=== PATIENT | male | born 1965 | race Two or more races ===

== ENCOUNTER 2022-08-29 10:44 | Inpatient (IN) | payer MEDICAID ==
[~2022-08-29] VITALS: Ht 167.6 cm; Wt 68.9 kg
--- NOTE | 2022-08-29 21:40 | NUR ---
SHAFT REPAIRER NOTES: RECEIVED PATIENT VIA GURNEY DIRECT ADMIT FROM [facility], ON STABLE CONDITION, PLACE COMFORTABLY IN BED, BED IN LOW POSITION CALL LIGHTS WITHIN REACH, NO COMPLAIN OF PAIN AND DISCOMFORT AT THIS TIME ON ROOM AIR SATURATING WELL, PATIENT IS A/OX4 AMBULATORY ABLE TO MAKE NEEDS KNOWN SKIN ASSESSMENT DONE, NO SKIN ISSUES WAS OBSERVED, INVENTORIES DONE, ORIENTED TO PLACE, PATIENT KEPT CLEAN AND DRY ALL NEEDS MET WILL CONTINUE TO MONITOR. Addendum: 08/30/22 at 0159 by OTIS CARO RN ADDITIONAL: PATIENT HAD 1126 DOLLAR ON HIS WALLET, PATIENT REFUSED TO TURNOVER IT FOR SAFEKEEPING , PATIENT SIGNED, ACKNOWLEDGING THAT MONEY WAS ON HIS CARE.
[2022-08-29] MEDS ORDERED: MAG HYDROX/AL HYDROX/SIMETH 30 ML UDC PO PRN (22:30)
[2022-08-29] MEDS ORDERED: MAGNESIUM HYDROXIDE 30 ML UDC PO PRN (22:30)
[2022-08-29] MEDS ORDERED: ACETAMINOPHEN 325 MG TABLET PO PRN (22:30)
[2022-08-29] MEDS ORDERED: HYDROCODONE/APAP 5/325MG TABLET PO PRN (22:30)
[2022-08-29] MEDS ORDERED: ONDANSETRON HCL/PF 4 MG/2 ML VIAL IVP PRN (22:30)
[2022-08-29] MEDS ORDERED: ZOLPIDEM TARTRATE 5 MG TABLET PO PRN (22:30)
[2022-08-30] MEDS ORDERED: MORPHINE SULFATE INJ 4 MG/ML DISP.SYRIN IV PRN (00:30)
[2022-08-30] MEDS ORDERED: METOPROLOL SUCCINATE 50 MG TAB.SR.24H PO SCH (00:30)
[2022-08-30 04:00] VITALS: BP 123/86
[2022-08-30 06:11] LABS: BASOPHILS % (AUTO) 0.1 % (0.0-2.0); EOSINOPHILS % (AUTO) 0.1 % (0.0-6.0); HEMATOCRIT 50 % (39-51); HEMOGLOBIN 16.1 g/dL (13.5-17.5); LYMPHOCYTES # (AUTO) 1.6 K/uL (0.8-4.8); LYMPHOCYTES % (AUTO) 10.2 % (20.0-44.0); MEAN CORPUSCULAR HGB CONC 32 g/dl (31.0-36.0); MEAN CORPUSCULAR VOLUME 89 fL (80-96); MONOCYTES # (AUTO) 1.5 K/uL (0.1-1.30); MONOCYTES % (AUTO) 9.5 % (2.0-12.0); NEUTROPHILS # (AUTO) 12.9 K/uL (1.8-8.9); NEUTROPHILS % (AUTO) 80.1 % (43.0-81.0); PLATELET COUNT (AUTO) 160 K/uL (150-450); RED BLOOD CELL COUNT(AUTO) 5.63 MIL/uL (4.5-6.0); WHITE BLOOD COUNT (AUTO) 16.1 K/uL (4.3-11.0)
[2022-08-30 06:27] LABS: CREATININE 1.4 mg/dL (0.6-1.3); MAGNESIUM 2.1 mg/dL (1.8-2.4); PHOSPHORUS 2.4 mg/dL (2.5-4.9); POTASSIUM 4.1 mmol/L (3.5-5.1)
--- NOTE | 2022-08-30 06:33 | NUR ---
FIELD CREW CHIEF CLOSING NOTES: PATIENT SLEEP IN BED COMFORTABLY, AROUSABLE TO VERBAL STIMULI, BED IN LOW POSITION, JACIEL LIGHTS WITHIN REACH, NO COMPLAIN OF PAIN AND DISCOMFORT AT THIS TIME ON ROOM AIR SATURATING WELL, PATIENT IS A/OX4 ABLE TO MAKE NEEDS KNOWN, AMBULATORY, ON TELE MONITOR- SR-88 WITH INVERTED T WAVES, NO SYMPTOMS WAS OBSERVED, PATIENT ON NPO FOR CARDIAC CATH TODAY, PATIENT KEPT CLEAN AND DRY ALL NEEDS MET ENDORSE TO INCOMING SHIFT.
[2022-08-30] MEDS ORDERED: PANTOPRAZOLE 40 MG TABLET.DR PO SCH (07:30)
[2022-08-30] MEDS ORDERED: IV SET PRIMARY PUMP SET 1 EA INFUS.SET MC ONE (07:53)
[2022-08-30] MEDS ORDERED: IV NS 0.9% 1,000 ML ONE (07:53)
--- NOTE | 2022-08-30 08:00 | NUR ---
FACTORY REPRESENTATIVE OPENING NOTES PATIENT AWAKE IN BED; AO X 4. SHE IS ON RA, TOLERATED WELL. NO S/S OF SOB OR DISTRESS. PATIENT IN LOW POSITION, CALL LIGHTS WITHIN REACH, NO COMPLAIN OF PAIN AND DISCOMFORT AT THIS TIME ON ROOM AIR SATURATING WELL, ON TELE MONITOR- SR-86 WITH INVERTED T WAVES, NO SYMPTOMS WAS OBSERVED, PATIENT ON NPO FOR CARDIAC CATH TODAY, PATIENT KEPT CLEAN AND DRY ALL NEEDS MET ENDORSE TO INCOMING SHIFT.
[2022-08-30] MEDS ORDERED: IODIXANOL 150 ML IV ONE (08:17)
[2022-08-30] MEDS ORDERED: FENTANYL PF 100MCG/2ML AMPUL ONE (08:17)
[2022-08-30] MEDS ORDERED: MIDAZOLAM HCL 2 MG/2ML VIAL ONE (08:18)
[2022-08-30] MEDS ORDERED: NITROGLYCERIN IN 5 % DEXTROSE 250 ML IV ONE (08:18)
[2022-08-30] MEDS ORDERED: LIDOCAINE HCL/MPF 1% 30 ML VIAL IJ ONE (08:18)
[2022-08-30] MEDS ORDERED: ASPIRIN 81 MG TAB.CHEW PO SCH (09:00)
[2022-08-30] MEDS ORDERED: FUROSEMIDE 40 MG/4 ML VIAL IV SCH (09:00)
--- NOTE | 2022-08-30 09:30 | NUR ---
RN NOTES PATIENT CAME BACK FROM THE [facility], VITALS A/OX4, NO C/O DISCOMFORT. VITALS TAKEN, STABLE AND RECORDED. BREAKFAST GIVEN. WILL MONITOR. ADVISED TO REMOVED AIR FROM TR BAND AT 1143. WILL MONITOR.
[2022-08-30] MEDS ORDERED: IODIXANOL 320MG/ML 100 ML IV ONE (09:33)
[2022-08-30] MEDS ORDERED: LOSARTAN POTASSIUM 25 MG TABLET PO SCH (10:30)
--- NOTE | 2022-08-30 11:12 | NUR ---
BACILIO NOTES PATIENT WENT FOR CARDIAC CATHETERIZATION, WILL FOLLOW UP Addendum: 08/30/22 at 1113 by RITA SPENCER RN PATIENT LEFT THE UNIT AT 0830 FOR THE PROCEDURE
[2022-08-30 11:51] VITALS: BP 112/82
[2022-08-30] MEDS ORDERED: METO50TA7 PO (12:58)
[2022-08-30] MEDS ORDERED: LOSA25TA27 PO (12:58)
[2022-08-30] MEDS ORDERED: FURO40TA5 PO (12:58)
--- NOTE | 2022-08-30 13:01 | NUR ---
RN NOTES ASPIRATED 3ML OF AIR EVERY 15MINS AT TR BAND STARTED AT 1143AM, NO SIGNS OF BLEEDING NOTED. TR BAND WAS REMOVED AFTER ASPIRATING 15ML OF AIR. INITIAL VITALS TAKEN, STABLE AND RECORDED. PATIENT A/OX4 NO COMPLICATIONS NOTED. WILL CONTINUE TO MONITOR.
[2022-08-30] MEDS ORDERED: NEUTRA PHOS 1 POWD.PACKET PO ONE (16:00)
--- NOTE | 2022-08-30 18:55 | NUR ---
MASTER STEAM YACHT CLOSING NOTES PATIENT AWAKE IN BED; AO X 4. ON RA, TOLERATED WELL. NO S/S OF SOB OR DISTRESS. PATIENT IN LOW POSITION, CALL LIGHTS WITHIN REACH, NO COMPLAIN OF PAIN AND DISCOMFORT AT THIS TIME ON ROOM AIR SATURATING WELL, ON TELE MONITOR-SR 86 CARDIAC CATH DONE TODAY, NO COMPLICATIONS NOTED. PATIENT FOR DISCHARGED TODAY, AWAITS LIFE VEST. ENDORSED TO NIGHT NURSE FOR DANIEL.
--- NOTE | 2022-08-30 19:43 | NUR ---
DISCHARGED NOTE DISCHARGED PATIENT TO HOME IN STABLE CONDITION. A/OX4. ON RA, TOLERATING WELL. NO SOB NOTED. VITALS TAKEN, STABLE AND RECORDED. PATIENT'S SKIN INTACT. DENIES PAIN OR DISCOMFORT. ALL BELONGINGS ACCOUNTED TO PATIENT. DISCHARGED INSTRUCTION RELAYED TO PATIENT, VERBALIZED UNDERSTANDING. IV ACCESS REMOVED WITH NO ACTIVE BLEEDING. PATIENT HAS BEEN GIVEN A LIFEVEST, EXPLAINED TO PATIENT USES AND ADVANTAGE. PATIENT LEFT WITH LIFEVEST. LEFT THE UNIT VIA WHEELCHAIR ACCOMPANIED BY STAFF AND . DISCHARGED.
[2022-08-31] MEDS ORDERED: FUROSEMIDE 40 MG TABLET PO SCH (09:00)
== END 2022-08-30 19:45 | disposition home or self-care (01) | DRG 190 ==
LOC: MED 21:11 → TELE 22:49
PROVIDERS: ADMIT Nurse Practitioner Acute Care
PROC: 4A023N7 Measurement of Cardiac Sampling and Pressure, Left Heart, Percutaneous Approach (ICD-10-PCS; principal; 2022-08-29)
PROC: B211YZZ Fluoroscopy of Multiple Coronary Arteries using Other Contrast (ICD-10-PCS; 2022-08-29)
PROC: B215YZZ Fluoroscopy of Left Heart using Other Contrast (ICD-10-PCS; 2022-08-29)
DX: I21.4 Non-ST elevation (NSTEMI) myocardial infarction (principal); J96.01 Acute respiratory failure with hypoxia; K72.00 Acute and subacute hepatic failure without coma; I13.0 Hypertensive heart and chronic kidney disease with heart failure and stage 1 through stage 4 chronic kidney disease, or unspecified chronic kidney disease; I42.9 Cardiomyopathy, unspecified; K76.1 Chronic passive congestion of liver; R74.01 Elevation of levels of liver transaminase levels; R74.8 Abnormal levels of other serum enzymes; F17.200 Nicotine dependence, unspecified, uncomplicated; Z79.899 Other long term (current) drug therapy; E66.9 Obesity, unspecified; Z68.24 Body mass index [BMI] 24.0-24.9, adult; F10.11 Alcohol abuse, in remission; E87.20 Acidosis, unspecified; I50.23 Acute on chronic systolic (congestive) heart failure; R65.11 Systemic inflammatory response syndrome (SIRS) of non-infectious origin with acute organ dysfunction; N17.9 Acute kidney failure, unspecified; N18.9 Chronic kidney disease, unspecified
CPT/HCPCS: 36415; 71045-TC; 80048-TC; 83735-TC; 84100-TC; 85025-TC; 85610-TC; 85730-TC; 86850-TC; 87081-TC; C1887; G0378; G0500; J1644; J2250; J2405; J3010; J3490; J7030; Q9967